=== PATIENT | female | born 1990 | race Caucasian/White ===

== ENCOUNTER 2021-07-07 04:00 | Inpatient (IN) ==
[2021-07-07] MEDS ORDERED: *HR* Nalbuphine 10 MG/ML AMPUL IV PRN (04:07)
[2021-07-07] MEDS ORDERED: Famotidine 20 MG/2 ML VIAL IVP PRN (04:07)
[2021-07-07] MEDS ORDERED: Ondansetron 4 MG/2 ML VIAL IVP PRN (04:07)
[2021-07-07] MEDS ORDERED: Metoclopramide 10 MG/2 ML VIAL IVP PRN (04:07)
[2021-07-07] MEDS ORDERED: Azithromycin 500 MG in 0.9 % Sodium Chloride 250 ML IVPB PRN (04:07)
[2021-07-07] MEDS ORDERED: Naloxone 0.4 MG/ML INJ IVP PRN (04:07)
[2021-07-07] MEDS ORDERED: Lidocaine 1% 20 ML MDV INFILT PRN (04:07)
[2021-07-07] MEDS ORDERED: Ringers Solution, Lactated 1,000 ML IVC SCH (04:15)
[2021-07-07] MEDS ORDERED: Oxytocin 20 units/ LR 1000 mL 20 UNIT/1,000 ML BAG IVC SCH ×2 (04:15→15:07)
[2021-07-07 05:07] LABS: Amphetamine Screen,Urine Negative ng/mL (Cutoff=1000); Barbiturate Screen,Urine Negative ng/mL (Cutoff=200); Benzodiazepines Screen,Urine Negative ng/mL (Cutoff=200); Cannabinoid Screen,Urine Negative ng/mL (Cutoff = 50); Cocaine Screen,Urine Negative ng/mL (Cutoff= 300); Opiate Screen,Urine Negative ng/mL (Cutoff=300); Phencyclidine Screen,Urine Negative ng/mL (Cutoff=25)
[2021-07-07 05:09] LABS: Basophils % 0.5 %; Eosinophils % 0.4 %; Hematocrit 40.9 % (35.3-44.9); Hemoglobin 12.7 g/dL (11.5-15.4); Immature Granulocytes % 0.6 % (0-4); Lymphocytes # 1.9 K/mcL (0.6-4.6); Lymphocytes % 23.6 %; Mean Corpuscular HGB Conc 31.1 g/dL (31.6-35.5); Mean Corpuscular Hemoglobin 26.1 pg (28.0-33.3); Mean Corpuscular Volume 84.2 fL (83.0-100.0); Mean Platelet Volume 12.1 fL (9.4-12.4); Monocytes # 0.6 K/mcL (0.0-1.3); Monocytes % 7.2 %; Neutrophils # 5.4 K/mcL (1.6-8.9); Platelet Count 244 K/mcL (140-400); Red Blood Count 4.86 M/mcL (3.82-4.97); Red Cell Distribution Width 17.4 % (11.5-14.5); Segmented Neutrophils % 67.7 %
[2021-07-07 05:39] LABS: Influenza A PCR Negative (Negative); Influenza B PCR Negative (Negative); Resp. Syncytial Virus PCR Negative (Negative); SARS-CoV-2 by PCR (In House) Negative (Negative)
[2021-07-07] MEDS ORDERED: EPHEDrine 50 MG/ML VIAL IVP PRN (05:39)
[2021-07-07] MEDS ORDERED: Epidural Premix (fent/bupiv) 110 ML EP SCH (05:45)
[2021-07-07] MEDS ORDERED: Benzocaine/Menthol 56 GM AEROSOL SPRAY TP PRN (15:07)
[2021-07-07] MEDS ORDERED: Lanolin 7 G OINT...G. TP PRN (15:07)
[2021-07-07] MEDS ORDERED: Ondansetron ODT 4 MG TAB.RAPDIS SL PRN (15:07)
[2021-07-07] MEDS ORDERED: Measles/Mumps/Rubella Vacc 0.5 ML VIAL SQ PRN (15:07)
[2021-07-07] MEDS: Ibuprofen 600 MG TABLET PO SCH (18:15)
[2021-07-07] MEDS: Acetaminophen 325 MG TABLET PO SCH (18:15)
[2021-07-08] MEDS: Ibuprofen 600 MG TABLET PO SCH ×2 (01:50→08:54)
[2021-07-08] MEDS: Acetaminophen 325 MG TABLET PO SCH ×2 (01:51→08:54)
[2021-07-08 02:56] LABS: Basophils % 0.4 %; Eosinophils % 0.4 %; Hematocrit 33.9 % (35.3-44.9); Hemoglobin 10.7 g/dL (11.5-15.4); Immature Granulocytes % 0.4 % (0-4); Lymphocytes # 1.8 K/mcL (0.6-4.6); Lymphocytes % 17.6 %; Mean Corpuscular HGB Conc 31.6 g/dL (31.6-35.5); Mean Corpuscular Volume 85.4 fL (83.0-100.0); Monocytes # 0.7 K/mcL (0.0-1.3); Monocytes % 6.5 %; Neutrophils # 7.7 K/mcL (1.6-8.9); Platelet Count 187 K/mcL (140-400); Red Blood Count 3.97 M/mcL (3.82-4.97); Red Cell Distribution Width 17.5 % (11.5-14.5); Segmented Neutrophils % 74.7 %; White Blood Count 10.3 K/mcL (4.3-11.1)
[2021-07-08 07:40] VITALS: BP 124/84; PULSE 52; TEMP 98; O2SAT 97
[2021-07-08] MEDS ORDERED: Prenatal Vit/FA 1 EACH TABLET PO SCH (09:00)
== END 2021-07-08 16:45 | disposition home or self-care (01) | DRG 807 ==
LOC: 1NENULAB 04:00 → 1NENUOBS 16:08
PROVIDERS: ADMIT Obstetrics & Gynecology; ATTEND Obstetrics & Gynecology